=== PATIENT | female | born 1930 | race Caucasian/White ===

== ENCOUNTER 2017-04-23 22:52 | Emergency (ER) | payer OTHER ==
[~2017-04-23] VITALS: Ht 165.1 cm; Wt 40.8 kg
--- NOTE | 2017-04-23 23:00 | NUR ---
TO BED 3 AN 87 YO FEMALE PATIENT BBRA 102; COUGH, CONGESTION X 8 DAYS. VSS. NAD NOTED. BREATHING EVEN AND UNLABORED. SATTING AT 93% ON ROOM AIR. PT ON O2 CANNULA AT 2LPM BY EMS. NONDIAPHORETIC. PLACED ON CARDIAC AND VS MONITORING. GOWNED. COMFORT MEASURES RENDERED.
[2017-04-24] MEDS ORDERED: ALBUTEROL FS 2.5 MG/3 ML VIAL.NEB CONTNEB ONE
[2017-04-24] MEDS ORDERED: DEXAMETHASONE SOD PHOSPHATE 4 MG/ML VIAL IV ONE
[2017-04-24] MEDS ORDERED: IPRATROPIUM NEB FS 0.5 MG/2.5 ML AMPUL.NEB NEB ONE
[2017-04-24] MEDS ORDERED: DEXAMETHASONE SOD PHOSPHATE 10 MG/ML VIAL ONE (00:02)
[2017-04-24] MEDS ORDERED: ALBUTEROL FS 2.5 MG/3 ML VIAL.NEB ONE (00:14)
[2017-04-24] MEDS ORDERED: IPRATROPIUM NEB FS 0.5 MG/2.5 ML AMPUL.NEB ONE (00:14)
--- NOTE | 2017-04-24 00:20 | NUR ---
ONGOING BREATHING TREATMENT BY RT.
[2017-04-24] MEDS ORDERED: DOXYCYCLINE HYCLATE (100 MG) 100 MG TABLET ONE (00:36)
[2017-04-24] MEDS ORDERED: DOXYCYCLINE HYCLATE (100 MG) 100 MG TABLET PO ONE (01:00)
--- NOTE | 2017-04-24 01:50 | NUR ---
ASSISTED PATIENT TO WALK TO THE HALLWAY PER DR CUMMINGS VERBAL ORDER, PATIENT WAS ABLE TO WALK A FEW STEPS BUT "FEELS HORRIBLE." RECEIVED MORE ORDERS FROM DR COBB.
--- NOTE | 2017-04-24 02:00 | NUR ---
STARTED A SALINE LOCK ON THE LEFT FOREARM G20, BLOOD DRAWN AND SENT TO LAB.
[2017-04-24 02:09] LABS: BASOPHILS # (AUTO) 0.4 /CMM (0.0-0.2); BASOPHILS % (AUTO) 1.7 % (0.0-2.0); EOSINOPHILS % (AUTO) 0.1 % (0.0-6.0); HEMATOCRIT 43 % (33-45); HEMOGLOBIN 14.4 g/dL (11.5-14.8); LYMPHOCYTES # (AUTO) 0.9 /CMM (0.8-4.8); LYMPHOCYTES % (AUTO) 4.4 % (20.0-44.0); MEAN CORPUSCULAR HEMOGLOBIN 30 PG (26.0-33.0); MEAN CORPUSCULAR HGB CONC 34 g/dl (31.0-36.0); MEAN CORPUSCULAR VOLUME 89 fL (82-100); MONOCYTES # (AUTO) 0.3 /CMM (0.1-1.30); MONOCYTES % (AUTO) 1.6 % (2.0-12.0); NEUTROPHILS # (AUTO) 19.2 /CMM (1.8-8.9); NEUTROPHILS % (AUTO) 92.2 % (43.0-81.0); PLATELET COUNT (AUTO) 223 /CMM (150-450); RDW COEFFICIENT OF VARIATION 12.7 (11.5-15.0); RED BLOOD CELL COUNT(AUTO) 4.81 MIL/uL (4.0-5.2); WHITE BLOOD COUNT (AUTO) 20.9 K/uL (4.3-11.0)
[2017-04-24 02:21] LABS: ABG BASE EXCESS 2.4 mmol/L; ABG OXYGEN SATURATION 65.5 % (92.0-98.5); ABG PCO2 40.2 mmHg (35.0-45.0); ABG PO2 32.6 mmHg (75.0-100.0); MetHb 0.4 % (0.0-1.5); O2Hb 64.6 % (94.0-97.0); VENT MODE, BG Room Air
[2017-04-24 02:27] LABS: CARBON DIOXIDE 27 mmol/L (21-32); CHLORIDE 99 mmol/L (98-107); CREATININE 0.7 mg/dL (0.6-1.3); GLUCOSE 129 mg/dL (74-106); POTASSIUM 3.3 mmol/L (3.5-5.1); SODIUM SERUM 141 mmol/L (136-145); UREA NITROGEN, BLOOD 11 mg/dL (7-18)
--- NOTE | 2017-04-24 02:48 | NUR ---
sully sweeney called. waiting for md call back.
[2017-04-24] MEDS ORDERED: VANCOMYCIN 1 GM in IV D5W 250 ML IV ONE (03:00)
[2017-04-24] MEDS ORDERED: LEVOFLOXACIN 750 MG /D5W 150ML 150 ML IV ONE ×2 (03:00→04:14)
[2017-04-24] MEDS ORDERED: VANCOMYCIN 1 GM VIAL ONE (03:09)
[2017-04-24] MEDS ORDERED: IV NS 0.9% 1,000 ML BAG IV ONE (04:30)
[2017-04-24 06:06] VITALS: BP 151/80
--- NOTE | 2017-04-24 06:07 | NUR ---
Call from [facility], pt accepted to [facility], by dr Fay. # for report [phone]. ETA 1 hr.
--- NOTE | 2017-04-24 06:27 | NUR ---
Report given to Live RN in [facility] ER for transfer. Endorsed care to [facility] ambulance staff for transfer. Patient is aaox3 at this time. vss. danielle on dc.
== END 2017-04-24 06:38 | disposition short-term general hospital (02) ==
LOC: ER 23:01
DX: J44.1 Chronic obstructive pulmonary disease with (acute) exacerbation (principal); J11.00 Influenza due to unidentified influenza virus with unspecified type of pneumonia; Z88.0 Allergy status to penicillin
CPT/HCPCS: 36415; 36600; 71045; 80048; 83605; 85025; 87040 ×2; 93005; 94640; 96365; 96368; 99285; A4606; J1100; J1956; J3370; J7040; Z7610

== ENCOUNTER 2019-05-31 19:44 | Emergency (ER) | payer OTHER ==
[~2019-05-31] VITALS: Ht 147.3 cm; Wt 37.2 kg
--- NOTE | 2019-05-31 20:07 | NUR ---
CALLED FOR ULTRA SOUND TECH.
[2019-05-31 20:18] LABS: BASOPHILS # (AUTO) 0.1 /CMM (0.0-0.2); BASOPHILS % (AUTO) 0.5 % (0.0-2.0); EOSINOPHILS % (AUTO) 1.2 % (0.0-6.0); HEMATOCRIT 33 % (33-45); HEMOGLOBIN 10.8 g/dL (11.5-14.8); LYMPHOCYTES % (AUTO) 7.3 % (20.0-44.0); MEAN CORPUSCULAR HGB CONC 33 g/dl (31.0-36.0); MEAN CORPUSCULAR VOLUME 94 fL (82-100); MONOCYTES % (AUTO) 7.2 % (2.0-12.0); NEUTROPHILS # (AUTO) 11.9 /CMM (1.8-8.9); NEUTROPHILS % (AUTO) 83.8 % (43.0-81.0); PLATELET COUNT (AUTO) 340 /CMM (150-450); RED BLOOD CELL COUNT(AUTO) 3.52 MIL/uL (4.0-5.2); WHITE BLOOD COUNT (AUTO) 14.2 K/uL (4.3-11.0)
--- NOTE | 2019-05-31 20:23 | NUR ---
MARLYN FROM HOME TO ER BED 3. AAOX4. NOT IN RESP DISTRESS, BRAETHING EVEN AND UNLABORED. BROUGHT IN FOR SOB. PER PT, SHE STARTED HAVING SOB AROUND 3PM, PT IS NOTED HAVING SOB UPON ASSESSMENT, LUNG SOUNDS ARE CLEAR. PT PLACED ON O2 VIA NC AT 2 LPM, SATTING @ 94%. PT REPORTS THAT SHE HAD A R HIP SURGERY BACK IN 05/21/18 AT [facility]. R HIP WOUND IS GOOD. NO DRAINAGE NOTED BUT NOTED SWELLING DOWN TO THE R LEG. PAIN IS RATED 5/10 WHEN MOVING OTHERWISE NO PAIN. MD WAS AT BEDSIDE. ORDERS RECEIVED, NOTED AND CARRIED OUT. EMT AT [facility] FOR EKG. IV LINE OBTAINED ON THE R AC W/ 18G. BLOOD DRAWN AND GIVENT O NETEZZA DEVELOPER AT BEDSIDE. US IS AT BEDSIDE WELL.
[2019-05-31] MEDS ORDERED: IV NS 0.9% 500 ML BAG IV ONE (20:30)
[2019-05-31] MEDS ORDERED: Magnesium 1GM/D5W 100ML PREMIX 200 ML IV ONE ×2 (20:38→20:43)
[2019-05-31] MEDS ORDERED: predniSONE 20 MG TABLET ONE (20:43)
[2019-05-31 20:47] LABS: D-DIMER 3.06 mg/L(FEU (0.17-0.50)
--- NOTE | 2019-05-31 20:51 | NUR ---
DAUGHTER: JOSE VASQUEZ
--- NOTE | 2019-05-31 20:56 | NUR ---
XRAY AT BEDSIDE
[2019-05-31 20:59] LABS: CALCIUM, SERUM 8.5 mg/dL (8.5-10.1); CREATININE 0.6 mg/dL (0.6-1.3); POTASSIUM 3.2 mmol/L (3.5-5.1)
[2019-05-31] MEDS ORDERED: ALBUTEROL FS 2.5 MG/3 ML VIAL.NEB NEB ONE (21:00)
[2019-05-31] MEDS ORDERED: predniSONE 20 MG TABLET PO ONE (21:00)
[2019-05-31] MEDS ORDERED: ALBUTEROL FS 2.5 MG/3 ML VIAL.NEB CONTNEB ONE (21:00)
[2019-05-31] MEDS ORDERED: ALBUTEROL FS 2.5 MG/3 ML VIAL.NEB ONE (21:01)
--- NOTE | 2019-05-31 21:23 | NUR ---
SOL (DAUGTHER) [phone] JOSE (DAUGTHER) [phone] - LIVES WITH PATIENT
[2019-05-31] MEDS ORDERED: IV NS 0.9% 250 ML IV ONE (21:29)
[2019-05-31] MEDS ORDERED: IOHEXOL-350 100 ML VIAL IV ONE (21:29)
[2019-05-31] MEDS ORDERED: CT SWABBABLE VALVE TRANS SET 1 EA INFUS.SET MC ONE (21:30)
--- NOTE | 2019-05-31 22:25 | NUR ---
02 INCREASED TO 4LPM O2 SAT NOTED @ 90%. AWARE
[2019-05-31] MEDS ORDERED: POTASSIUM CHLORIDE 20 MEQ TAB.PRT.SR PO ONE ×2 (23:30→23:35)
--- NOTE | 2019-06-01 00:48 | NUR ---
TRANSFER INFO: GOING TO [facility] - ER ACCEPTING MD: DR. WEINER TEL: [phone] ETA: [phone] BY [facility]
--- NOTE | 2019-06-01 01:22 | NUR ---
REPORT GIVEN TO PATRICK RICHARDSON OF [facility] AND JASON JEFFERSON RN FROM [facility]. PT IS STABLE FOR TRANSPORT.
[2019-06-01 01:23] VITALS: BP 139/61
--- NOTE | 2019-06-01 01:55 | NUR ---
PT LEFT ON GURNEY WITH 3 AMBULANCE STAFF. NAD NOTED.
== END 2019-06-01 01:55 | disposition short-term general hospital (02) ==
LOC: ER 19:47
DX: R09.02 Hypoxemia (principal); J44.9 Chronic obstructive pulmonary disease, unspecified; Z98.890 Other specified postprocedural states; Z88.0 Allergy status to penicillin
CPT/HCPCS: 36415; 71045; 71275; 80048; 83880; 84484; 85025; 85378; 85730; 93005; 93971; 94644; 96365; 99285; J3475; J7040; J7050; J7512; Q9967